=== PATIENT | male | born 1975 | race African-American/Black ===

== ENCOUNTER 2016-05-09 09:53 | Inpatient (IN) | payer OTHER ==
[2016-05-09 10:15] VITALS: BMI 24.4
--- NOTE | 2016-05-09 11:31 | HP ---
COWS - Scale Resting Pulse: 0= [place] 80 or Below Sweatin=Flushed/Facial Moisture Restless Observation: 0= Sits Still Pupil Size: 0= Normal to Room Light Bone or Joint Aches: 2= Severe Diffuse Aches Runny Nose/ Eye Tearin= Nasal Congestion GI Upset > 30mins: 1= Stomach Cramp Tremor Observation: 2= Slight Tremor Visible Yawning Observation: 2= >3x During Session Anxiety or Irritability: 2=Irritable/Anxious Goose Flesh Skin: 0=Smooth Skin COWS Score: 12 CIWA Score - CIWA Score Nausea/Vomitin-No Nausea/No Vomiting Muscle Tremors: 4-Moderate,w/Arms Extend Anxiety: 3 Agitation: 4-Moderately Restless Paroxysmal Sweats: 3 Orientation: 0-Oriented Tacttile Disturbances: 0-None Auditory Disturbances: 0-None Visual Disturbances: 0-None Headache: 3-Moderate CIWA-Ar Total Score: 17 Admission ROS S - HPI Chief Complaint: I need to detox from ana and alcohol and continue treatment. Allergies/Adverse Reactions: Allergies Allergy/AdvReac Type Severity Reaction Status Date / Time No Known Allergies Allergy Verified 05/09/16 10:23 History of Present Illness: pt is a 40yr old male with a history of alcohol, heroin and cocaine dependence seeking detox for treatment. Exam Limitations: No Limitations - Ebola screening Have you traveled outside of the country in the last 21 days: No Have you had contact with anyone from an Ebola affected area: No Have you been sick,other than usual withdrawal symptoms: No Do you have a fever: No - Review of Systems Constitutional: Chills, Diaphoresis, Loss of Appetite, Night Sweats, Changes in sleep, Unintentional Wgt. Loss EENT: reports: Nose Congestion Respiratory: reports: Cough Cardiac: reports: Lightheadedness GI: reports: Poor Appetite, Poor Fluid Intake, Indigestion : reports: No Symptoms Reported Musculoskeletal: reports: Back Pain Integumentary: reports: Flushing, Sweating Neuro: reports: Headache, Tingling, Tremors Endocrine: reports: Excessive Sweating, Flushing, Intolerance to Cold, Intolerance to Heat Hematology: reports: No Symptoms Reported Psychiatric: reports: Judgement Intact, Mood/Affect Appropiate, Orientated x3, Agitated, Anxious Other Systems: Reviewed and Negative Patient History - Patient Medical History Hx Anemia: No Hx Asthma: No Hx Chronic Obstructive Pulmonary Disease (COPD): No Hx Cancer: No Hx Cardiac Disorders: No Hx Congestive Heart Failure: No Hx Hypertension: Yes Hx Hypercholesterolemia: No Hx Pacemaker: No HX Cerebrovascular Accident: No Hx Seizures: No Hx Dementia: No Hx Diabetes: No Hx Gastrointestinal Disorders: No Hx Liver Disease: No Hx Genitourinary Disorders: No Hx Sexually Transmitted Disorders: Yes (herpes/treated) Hx Renal Disease (ESRD): No Hx Thyroid Disease: No Hx Human Immunodeficiency Virus (HIV): No (NEGATIVE HX) Hx Hepatitis C: No Hx Depression: Yes Hx Suicide Attempt: No Hx Bipolar Disorder: Yes (ON MEDS ) Hx Schizophrenia: No - Patient Surgical History Past Surgical History: Yes Hx Neurologic Surgery: No Hx Cataract Extraction: No Hx Cardiac Surgery: No Hx Lung Surgery: No Hx Breast Surgery: No Hx Breast Biopsy: No Hx Abdominal Surgery: Yes (L inguinal hernia 2004) Hx Appendectomy: No Hx Cholecystectomy: No Hx Genitourinary Surgery: No Hx Section: No Hx Orthopedic Surgery: No Other Surgical History: 2010 reconstructive facial sx L side Anesthesia Reaction: No - PPD History Previous Implant?: Yes Documented Results: Negative w/o proof Implanted On Prior [facility] Admission?: Yes PPD to be Administered?: Yes - Reproductive History Patient is a Female of Child Bearing Age (11 -55 yrs old): No - Smoking Cessation Smoking history: Current every day smoker Have you smoked in the past 12 months: Yes Aproximately how many cigarettes per day: 7 Hx Chewing Tobacco Use: No Initiated information on smoking cessation: Yes 'Breaking Loose' booklet given: 05/09/16 - Substance & Tx. History Hx Alcohol Use: No Hx Substance Use: No Substance Use Type: Alcohol, Cocaine, Heroin Hx Substance Use Treatment: Yes - Substances Abused Alcohol Route: Oral Frequency: Daily Amount used: Beer( 6pk 24 oz cans)/vodka(1/2 pint) Age of first use: 13 Date of Last Use: 05/09/16 Heroin Route: Inhalation Frequency: Daily Amount used: 3 bAGS Age of first use: 39 Date of Last Use: 05/09/16 Cocaine Route: Smoking Frequency: Daily Amount used: $20 Age of first use: 13 Date of Last Use: 05/08/16 Family Disease History - Family Disease History Family Disease History: Diabetes: Grandparent, Heart Disease: Grandparent, [place]: Grandparent, Other: Father (etoh/substance), Mother (etoh/substance), Brother ( substance/etoh), Sister (substance/etoh) Admission Physical Exam [facility] - Vital Signs Vital Signs: Vital Signs - 24 hr 05/09/16 10:13 Temperature 97.5 F L Pulse Rate 75 Respiratory 18 Rate Blood Pressure 143/81 - Physical General Appearance: Yes: Appropriately Dressed, Moderate Distress, Tremorous, Irritable, Sweating, Anxious HEENTM: Yes: Hearing grossly Normal, Normal Voice, Nasal Congestion, Rhinorrhea Respiratory: Yes: Lungs Clear, Normal Breath Sounds, No Respiratory Distress Neck: Yes: No masses,lesions,Nodules Breast: Yes: Within Normal Limits Cardiology: Yes: Regular Rhythm, Regular Rate, S1, S2 Abdominal: Yes: Normal Bowel Sounds, Non Tender, Soft Genitourinary: Yes: Within Normal Limits Back: Yes: Normal Inspection Musculoskeletal: Yes: full range of Motion, Gait Steady Extremities: Yes: Normal Capillary Refill, Normal Inspection, Non-Tender, Tremors Neurological: Yes: Fully Oriented, Alert, Normal Response Integumentary: Yes: Normal Color, Diaphoresis Lymphatic: Yes: Within Normal Limits - Diagnostic (1) Alcohol dependence with uncomplicated withdrawal Current Visit: Yes Status: Chronic (2) Bipolar disorder Current Visit: Yes Status: Chronic (3) Cocaine dependence Current Visit: Yes Status: Chronic Qualifiers: Substance use status: uncomplicated Qualified Code(s): F14.20 - Cocaine dependence, uncomplicated (4) Hypertension Current Visit: Yes Status: Chronic Qualifiers: Hypertension type: essential hypertension Qualified Code(s): I10 - Essential (primary) hypertension (5) Nicotine dependence Current Visit: Yes Status: Chronic Qualifiers: Nicotine product type: cigarettes Substance use status: uncomplicated Qualified Code(s): F17.210 - Nicotine dependence, cigarettes, uncomplicated (6) Opioid dependence with withdrawal Current Visit: Yes Status: Chronic Cleared for Admission [facility] - Detox or Rehab [facility] Level of Care: Medically Managed Detox Regimen/Protocol: Methadone/Librium [facility] Breath Alcohol Content Breath Alcohol Content: 0.018 Urine Drug Screen - Results Drug Screen Negative: No Urine Drug Screen Results: FRANKY-Cocaine, OPI-Opiates, BZO-Benzodiazepines
[2016-05-09] MEDS ORDERED: MAGNESIUM HYDROX 2400MG/30ML ORAL SUSPENSION 30 ML CUP PO PRN (11:42)
[2016-05-09] MEDS ORDERED: guaiFENesin/D-METHORPHAN HB 10 ML UNIT-DOSE CUPS PO PRN (11:42)
[2016-05-09] MEDS ORDERED: chlordiazePOXIDE HCL 25 MG CAPSULE PO PRN (11:42)
[2016-05-09] MEDS ORDERED: IBUPROFEN 400 MG TABLET (FP) PO PRN (11:42)
[2016-05-09] MEDS ORDERED: LOPERAMIDE HCL 2 MG CAPSULE PO PRN (11:42)
[2016-05-09] MEDS ORDERED: NICOTINE POLACRILEX 4 MG GUM BUC PRN (11:42)
[2016-05-09] MEDS ORDERED: MAGNESIUM CITRATE 300 ML BOTTLE PO PRN (11:42)
[2016-05-09] MEDS ORDERED: hydrOXYzine PAMOATE 50 MG CAPSULE (FP) PO PRN (11:42)
[2016-05-09] MEDS ORDERED: MAG HYDROX/AL HYDROX/SIMETH 30 ML UNIT-DOSE CUP PO PRN (11:42)
[2016-05-09] MEDS ORDERED: diphenhydrAMINE HCL 50 MG CAPSULE PO PRN (11:42)
[2016-05-09] MEDS ORDERED: P-EPHED 60MG/TRIPROLIDI 2.5MG TABLET PO PRN (11:42)
[2016-05-09] MEDS ORDERED: MENTHOL/PHENOL 1 EACH UD MM PRN (11:42)
[2016-05-09] MEDS ORDERED: ACETAMINOPHEN 325 MG TABLET (FP) PO PRN (11:42)
[2016-05-09] MEDS ORDERED: chlordiazePOXIDE HCL 25 MG CAPSULE PO ONE (11:47)
[2016-05-09] MEDS ORDERED: METHADONE HCL 10 MG TABLET (FOR DETOX USE ONLY) PO ONE ×2 (11:58→23:00)
[2016-05-09] MEDS: chlordiazePOXIDE HCL 25 MG CAPSULE PO SCH ×3 (12:38→22:24)
--- NOTE | 2016-05-09 15:19 | CONSULT ---
[facility] Psychiatric Consult - Data Date of interview: 05/09/16 Admission source: [facility] Identifying data: Readmission to [facility] for this 40 y/o AA male seeking detox treatment on for heroin,benzodiazepine (xanax),cocaine (crack) and alcohol dependence.Patient is single,a father of two,homeless,unemployed and supported on food stamps. Substance Abuse History: - Smoking Cessation. Smoking history: Current every day smoker. Have you smoked in the past 12 months: Yes. Aproximately how many cigarettes per day: 7. Hx Chewing Tobacco Use: No. Initiated information on smoking cessation: Yes. 'Breaking Loose' booklet given: 05/09/16. - Substance & Tx. History. Hx Alcohol Use: No. Hx Substance Use: No. Substance Use Type: Alcohol, Cocaine, Heroin. Hx Substance Use Treatment: Yes. - Substances Abused. Alcohol. Route: Oral. Frequency: Daily. Amount used: Beer( 6pk 24 oz cans)/vodka(1/2 pint). Age of first use: 13. Date of Last Use: . Heroin. Route: Inhalation. Frequency: Daily. Amount used: 3 bAGS. Age of first use: 39. Date of Last Use: 05/09/16. Cocaine. Route: Smoking. Frequency: Daily. Amount used: $20. Age of first use: 13. Date of Last Use: 05/08/16. Confirmed by patient. Medical History: Significant for a history of hypertension,past treatment for herpes genitalis,left inguinal herniorraphy (2004) and reconstructive facial surgery (plate in place in left cheek) in 2009. Psychiatric History: Onset of psychiatric illness :age 12.Admitted to [facility] for behavior dyscontrol and self mutilation.Diagnosed with Bipolar Disorder and started on [place] at the time.Subsequent admission in 2010 at [facility] for auditory hallucinations and suicidal ideation.Was switched to Seroquel.Mr Morales used to receive psychiatric outpatient services at [facility] (no show for past three months as per self-report) .Stopped taking (own choice) risperdal,sertraline and cogentin.Doses were : Risperdal 4 mg po HS, + Cogentin 0.5 mg po HS + Zoloft 25 mg po daily.Patient expresses the wish to get back on these medications in this hospital course. Physical/Sexual Abuse/Trauma History: Patient denies. Mental Status Exam - Mental Status Exam Alert and Oriented to: Time, Place, Person Cognitive Function: Good Patient Appearance: Well Groomed Mood: Withdrawn, Apprehensive, Hopeful Affect: Mood Congruent Patient Behavior: Appropriate, Cooperative Speech Pattern: Clear, Appropriate Voice Loudness: Normal Thought Process: Goal Oriented Thought Disorder: Not Present Hallucinations: Denies Suicidal Ideation: Denies Homicidal Ideation: Denies Insight/Judgement: Poor Sleep: Fair Appetite: Good Muscle strength/Tone: Normal Gait/Station: Normal Psychiatric Findings - Problem List ([place] 1, 2,3) (1) Alcohol dependence with uncomplicated withdrawal Current Visit: Yes Status: Acute (2) Opioid dependence with withdrawal Current Visit: Yes Status: Acute (3) Cocaine dependence Current Visit: Yes Status: Acute Qualifiers: Substance use status: uncomplicated Qualified Code(s): F14.20 - Cocaine dependence, uncomplicated (4) Nicotine dependence Current Visit: Yes Status: Acute Qualifiers: Nicotine product type: cigarettes Substance use status: uncomplicated Qualified Code(s): F17.210 - Nicotine dependence, cigarettes, uncomplicated (5) Bipolar disorder Current Visit: Yes Status: Chronic (6) Hypertension Current Visit: Yes Status: Chronic Qualifiers: Hypertension type: essential hypertension Qualified Code(s): I10 - Essential (primary) hypertension - Initial Treatment Plan Initial Treatment Plan: Psychoeducation.Detoxification in progress.Medications : risperdal 1 mg po bid + cogentin 0.5 mg po bid + zoloft 50 mg po daily.Side effects/benefits discussed with the patient.He agrees to follow this careplan.Observation.
[2016-05-09] MEDS ORDERED: LORATADINE 10 MG TABLET PO ONE (17:30)
[2016-05-09 17:53] LABS: URINE APPEARANCE CLEAR; URINE BILIRUBIN NEGATIVE (NEGATIVE); URINE BLOOD NEGATIVE (NEGATIVE); URINE COLOR YELLOW; URINE GLUCOSE (UA) NEGATIVE (NEGATIVE); URINE KETONE NEGATIVE (NEGATIVE); URINE LEUK ESTERASE NEGATIVE (NEGATIVE); URINE NITRITE NEGATIVE (NEGATIVE); URINE PROTEIN NEGATIVE (NEGATIVE); URINE UROBILINOGEN NEGATIVE E.U./dl (0.2-1.0)
[2016-05-09] MEDS: THIAMINE HCL 100 MG TABLET (FP) PO SCH (22:24)
[2016-05-09] MEDS: risperiDONE 1 MG TABLET (FP) PO SCH (22:24)
[2016-05-09] MEDS: BENZTROPINE MESYLATE 1 MG TABLET (FP) PO SCH (22:24)
[2016-05-10] MEDS: chlordiazePOXIDE HCL 25 MG CAPSULE PO SCH ×4 (05:48→22:39)
[2016-05-10] MEDS ORDERED: PATIENT'S OWN MEDICATION (NON-FORMULARY) (Amlodipine Besylate/Benazepril [Lotrel 5-40 Mg C PO SCH (10:00)
[2016-05-10] MEDS ORDERED: METHADONE HCL 10 MG TABLET (FOR DETOX USE ONLY) PO SCH (10:00)
[2016-05-10 10:31] LABS: MCHC 33.3 g/dl (32.0-35.9); MEAN CELL VOLUME 84.1 fl (80-96); PLATELET COUNT 197 K/MM3 (134-434); RDW 15.3 % (11.9-15.9); WHITE BLOOD COUNT 5.9 K/mm3 (4.0-10.0)
[2016-05-10] MEDS: SERTRALINE HCL 50 MG TABLET (FP) PO SCH ×2 (11:30→14:14)
[2016-05-10] MEDS: NICOTINE 21 MG/24 HOURS TOPICAL PATCH TD SCH (11:30)
[2016-05-10] MEDS: CHOLECALCIFEROL (VITAMIN D3) 1,000 UNIT TABLET (FP) PO SCH (11:30)
[2016-05-10] MEDS: BENZTROPINE MESYLATE 1 MG TABLET (FP) PO SCH ×2 (11:34→22:40)
[2016-05-10] MEDS: PRENATAL VITAMINS W/ FOLIC ACID TABLET (FP) PO SCH (11:34)
[2016-05-10] MEDS: LORATADINE 10 MG TABLET PO SCH (11:34)
[2016-05-10] MEDS: LISINOPRIL 20 MG TABLET (FP) PO SCH (11:35)
[2016-05-10] MEDS: risperiDONE 1 MG TABLET (FP) PO SCH ×2 (11:35→22:40)
[2016-05-10] MEDS: amLODIPine BESYLATE 5 MG TABLET (FP) PO SCH (11:35)
[2016-05-10 11:57] LABS: ALBUMIN 4.1 g/dl (3.4-5.0); ALK PHOS 65 U/L (45-117); ANION GAP 10 (8-16); BILIRUBIN,TOTAL 0.5 mg/dL (0.2-1.0); CALCIUM 8.9 mg/dL (8.5-10.1); CO2 26 mmol/L (21-32); CREATININE 1.2 mg/dL (0.7-1.3); GLUCOSE,RANDOM 54 mg/dL (74-106); SGOT/AST 30 U/L (15-37); SGPT/ALT 30 U/L (12-78); TOT PROT 7.3 g/dl (6.4-8.2)
[2016-05-10] MEDS ORDERED: INFLUENZA VACCINE 45 MCG/0.5 ML (MDV 16-17) IM ONE (12:00)
--- NOTE | 2016-05-10 12:43 | PN ---
[facility] CIWA - CIWA Score Nausea/Vomitin Muscle Tremors: 3 Anxiety: 3 Agitation: 2 Paroxysmal Sweats: 1-Minimal Palms Moist Orientation: 0-Oriented Tacttile Disturbances: 1-Very Mild Itch/Numbness Auditory Disturbances: 1-Very Mild Visual Disturbances: 1-Very Mild Sensitivity Headache: 2-Mild CIWA-Ar Total Score: 17 BHS COWS - Scale Resting Pulse: 0= [place] 80 or Below Sweatin= Chills/Flushing Restless Observation: 3= Extraneous Movement Pupil Size: 1= Pupils >than Normal Bone or Joint Aches: 2= Severe Diffuse Aches Runny Nose/ Eye Tearin= Runny Nose/Eyes GI Upset > 30mins: 3= Vomiting/Diarrhea Tremor Observation of Outstretched Hands: 2= Slight Tremor Visible Yawning Observation: 1= 1-2x During Session Anxiety or Irritability: 2=Irritable/Anxious Goose Flesh Skin: 0=Smooth Skin COWS Score: 17 S Progress Note (SOAP) Subjective: ALERT,IRRITABLE,ANXIOUS,TREMOR,PAIN IN THE BODY JOINT BACK Objective: 05/10/16 12:41 Vital Signs Temperature 97.1 F L 05/10/16 10:00 Pulse Rate 54 L 05/10/16 10:00 Respiratory Rate 18 05/10/16 10:00 Blood Pressure 122/80 05/10/16 10:00 O2 Sat by Pulse Oximetry (%) EKG NSR WITH SINUS ARRHYTHMIA Laboratory Last Values WBC 5.9 K/mm3 (4.0-10.0) 05/10/16 08:00 RBC 5.44 M/mm3 (4.00-5.60) 05/10/16 08:00 Hgb 15.2 GM/dL (11.7-16.9) 05/10/16 08:00 Hct 45.8 % (35.4-49) 05/10/16 08:00 MCV 84.1 fl (80-96) 05/10/16 08:00 MCHC 33.3 g/dl (32.0-35.9) 05/10/16 08:00 RDW 15.3 % (11.9-15.9) 05/10/16 08:00 Plt Count 197 K/MM3 (134-434) 05/10/16 08:00 MPV 10.0 fl (7.5-11.1) 05/10/16 08:00 Sodium 137 mmol/L (136-145) 05/10/16 08:00 Potassium 3.9 mmol/L (3.5-5.1) 05/10/16 08:00 Chloride 101 mmol/L (98-107) 05/10/16 08:00 Carbon Dioxide 26 mmol/L (21-32) 05/10/16 08:00 Anion Gap 10 (8-16) 05/10/16 08:00 BUN 13 mg/dL (7-18) 05/10/16 08:00 Creatinine 1.2 mg/dL (0.7-1.3) 05/10/16 08:00 Creat Clearance w eGFR > 60 (>60) 05/10/16 08:00 Random Glucose 54 mg/dL (74-106) L D 05/10/16 08:00 Calcium 8.9 mg/dL (8.5-10.1) 05/10/16 08:00 Total Bilirubin 0.5 mg/dL (0.2-1.0) D 05/10/16 08:00 AST 30 U/L (15-37) 05/10/16 08:00 ALT 30 U/L (12-78) 05/10/16 08:00 Alkaline Phosphatase 65 U/L (45-117) 05/10/16 08:00 Total Protein 7.3 g/dl (6.4-8.2) 05/10/16 08:00 Albumin 4.1 g/dl (3.4-5.0) 05/10/16 08:00 Urine Color Yellow 05/09/16 17:00 Urine Appearance Clear 05/09/16 17:00 Urine pH 5.0 (5.0-8.0) D 05/09/16 17:00 Ur Specific [place] 1.016 (1.001-1.035) 05/09/16 17:00 Urine Protein Negative (NEGATIVE) 05/09/16 17:00 Urine Glucose (UA) Negative (NEGATIVE) 05/09/16 17:00 Urine Ketones Negative (NEGATIVE) 05/09/16 17:00 Urine Blood Negative (NEGATIVE) 05/09/16 17:00 Urine Nitrite Negative (NEGATIVE) 05/09/16 17:00 Urine Bilirubin Negative (NEGATIVE) 05/09/16 17:00 Urine Urobilinogen Negative E.U./dl (0.2-1.0) 05/09/16 17:00 Ur Leukocyte Esterase Negative (NEGATIVE) 05/09/16 17:00 LABS PENDING Assessment: 05/10/16 12:43 WITHDRAWAL SYMPTOM Plan: CONTINUE DETOX
--- NOTE | 2016-05-10 16:29 | EKG ---
Test Reason : Blood Pressure : / mmHG Vent. Rate : 063 BPM Atrial Rate : 063 BPM P-R Int : 178 ms QRS Dur : 084 ms QT Int : 396 ms P-R-T Axes : 047 -01 009 degrees QTc Int : 405 ms NORMAL SINUS RHYTHM WITH SINUS ARRHYTHMIA NORMAL ECG NO PREVIOUS ECGS AVAILABLE Confirmed by JOHN BRIGHT, JOHANA ([id number]) on 05/10/2016 4:29:36 PM Referred By: Jalen Sandoval Confirmed By:JOHANA LOPEZ MD
[2016-05-10] MEDS: THIAMINE HCL 100 MG TABLET (FP) PO SCH (22:40)
[2016-05-11] MEDS: chlordiazePOXIDE HCL 25 MG CAPSULE PO SCH (06:19)
[2016-05-11] MEDS: SERTRALINE HCL 50 MG TABLET (FP) PO SCH (11:15)
[2016-05-11] MEDS: LISINOPRIL 20 MG TABLET (FP) PO SCH (11:15)
[2016-05-11] MEDS: amLODIPine BESYLATE 5 MG TABLET (FP) PO SCH (11:15)
[2016-05-11] MEDS: LORATADINE 10 MG TABLET PO SCH (11:15)
[2016-05-11] MEDS: chlordiazePOXIDE 5 MG CAPSULE PO SCH ×3 (11:15→22:07)
[2016-05-11] MEDS: PRENATAL VITAMINS W/ FOLIC ACID TABLET (FP) PO SCH (11:15)
[2016-05-11] MEDS: CHOLECALCIFEROL (VITAMIN D3) 1,000 UNIT TABLET (FP) PO SCH (11:15)
[2016-05-11] MEDS: risperiDONE 1 MG TABLET (FP) PO SCH ×2 (11:15→22:07)
[2016-05-11] MEDS: NICOTINE 21 MG/24 HOURS TOPICAL PATCH TD SCH (11:15)
[2016-05-11] MEDS: BENZTROPINE MESYLATE 1 MG TABLET (FP) PO SCH ×2 (11:15→22:07)
--- NOTE | 2016-05-11 12:49 | PN ---
S CIWA - CIWA Score Nausea/Vomitin Muscle Tremors: 3 Anxiety: 3 Agitation: 3 Paroxysmal Sweats: 1-Minimal Palms Moist Orientation: 0-Oriented Tacttile Disturbances: 1-Very Mild Itch/Numbness Auditory Disturbances: 1-Very Mild Visual Disturbances: 1-Very Mild Sensitivity Headache: 2-Mild CIWA-Ar Total Score: 18 BHS COWS - Scale Resting Pulse: 1= [place] 81-100 Sweatin= Chills/Flushing Restless Observation: 3= Extraneous Movement Pupil Size: 1= Pupils >than Normal Bone or Joint Aches: 2= Severe Diffuse Aches Runny Nose/ Eye Tearin= Runny Nose/Eyes GI Upset > 30mins: 2= Nausea/Diarrhea Tremor Observation of Outstretched Hands: 2= Slight Tremor Visible Yawning Observation: 1= 1-2x During Session Anxiety or Irritability: 2=Irritable/Anxious Goose Flesh Skin: 0=Smooth Skin COWS Score: 17 S Progress Note (SOAP) Subjective: ALERT,IRRITABLE,ANXIOUS,INTERRUPTED SLEEP,TREMOR,PAIN IN THE BODY Objective: 05/11/16 12:50 Vital Signs Temperature 98.2 F 05/11/16 10:00 Pulse Rate 85 05/11/16 10:00 Respiratory Rate 16 05/11/16 10:00 Blood Pressure 109/70 05/11/16 10:00 O2 Sat by Pulse Oximetry (%) Laboratory Last Values WBC 5.9 K/mm3 (4.0-10.0) 05/10/16 08:00 RBC 5.44 M/mm3 (4.00-5.60) 05/10/16 08:00 Hgb 15.2 GM/dL (11.7-16.9) 05/10/16 08:00 Hct 45.8 % (35.4-49) 05/10/16 08:00 MCV 84.1 fl (80-96) 05/10/16 08:00 MCHC 33.3 g/dl (32.0-35.9) 05/10/16 08:00 RDW 15.3 % (11.9-15.9) 05/10/16 08:00 Plt Count 197 K/MM3 (134-434) 05/10/16 08:00 MPV 10.0 fl (7.5-11.1) 05/10/16 08:00 Sodium 137 mmol/L (136-145) 05/10/16 08:00 Potassium 3.9 mmol/L (3.5-5.1) 05/10/16 08:00 Chloride 101 mmol/L (98-107) 05/10/16 08:00 Carbon Dioxide 26 mmol/L (21-32) 05/10/16 08:00 Anion Gap 10 (8-16) 05/10/16 08:00 BUN 13 mg/dL (7-18) 05/10/16 08:00 Creatinine 1.2 mg/dL (0.7-1.3) 05/10/16 08:00 Creat Clearance w eGFR > 60 (>60) 05/10/16 08:00 POC Glucometer 114 UNITS (()) 05/11/16 06:18 Random Glucose 54 mg/dL (74-106) L D 05/10/16 08:00 Calcium 8.9 mg/dL (8.5-10.1) 05/10/16 08:00 Total Bilirubin 0.5 mg/dL (0.2-1.0) D 05/10/16 08:00 AST 30 U/L (15-37) 05/10/16 08:00 ALT 30 U/L (12-78) 05/10/16 08:00 Alkaline Phosphatase 65 U/L (45-117) 05/10/16 08:00 Ammonia 26.9 umol/L (11-32) 05/11/16 07:40 Total Protein 7.3 g/dl (6.4-8.2) 05/10/16 08:00 Albumin 4.1 g/dl (3.4-5.0) 05/10/16 08:00 Urine Color Yellow 05/09/16 17:00 Urine Appearance Clear 05/09/16 17:00 Urine pH 5.0 (5.0-8.0) D 05/09/16 17:00 Ur Specific [place] 1.016 (1.001-1.035) 05/09/16 17:00 Urine Protein Negative (NEGATIVE) 05/09/16 17:00 Urine Glucose (UA) Negative (NEGATIVE) 05/09/16 17:00 Urine Ketones Negative (NEGATIVE) 05/09/16 17:00 Urine Blood Negative (NEGATIVE) 05/09/16 17:00 Urine Nitrite Negative (NEGATIVE) 05/09/16 17:00 Urine Bilirubin Negative (NEGATIVE) 05/09/16 17:00 Urine Urobilinogen Negative E.U./dl (0.2-1.0) 05/09/16 17:00 Ur Leukocyte Esterase Negative (NEGATIVE) 05/09/16 17:00 RPR Titer Nonreactive (NONREACTIVE) 05/10/16 08:00 Assessment: 05/11/16 12:51 WITHDRAWAL SYMPTOM Plan: CONTINUE DETOX
--- NOTE | 2016-05-11 12:52 | PN ---
BHS Progress Note Note: AMMONIA LEVEL IS 26.9
[2016-05-11] MEDS: METHADONE HCL 5 MG TABLET (FOR DETOX USE ONLY) PO SCH (13:31)
[2016-05-11] MEDS: THIAMINE HCL 100 MG TABLET (FP) PO SCH (22:07)
[2016-05-12] MEDS: chlordiazePOXIDE 5 MG CAPSULE PO SCH (06:32)
[2016-05-12] MEDS: PRENATAL VITAMINS W/ FOLIC ACID TABLET (FP) PO SCH (10:22)
[2016-05-12] MEDS: LISINOPRIL 20 MG TABLET (FP) PO SCH (10:23)
[2016-05-12] MEDS: METHADONE HCL 5 MG TABLET (FOR DETOX USE ONLY) PO SCH (10:23)
[2016-05-12] MEDS: LORATADINE 10 MG TABLET PO SCH (10:23)
[2016-05-12] MEDS: BENZTROPINE MESYLATE 1 MG TABLET (FP) PO SCH (10:23)
[2016-05-12] MEDS: SERTRALINE HCL 50 MG TABLET (FP) PO SCH (10:23)
[2016-05-12] MEDS: CHOLECALCIFEROL (VITAMIN D3) 1,000 UNIT TABLET (FP) PO SCH (10:24)
[2016-05-12] MEDS: NICOTINE 21 MG/24 HOURS TOPICAL PATCH TD SCH (10:24)
[2016-05-12] MEDS: amLODIPine BESYLATE 5 MG TABLET (FP) PO SCH (10:28)
--- NOTE | 2016-05-12 10:41 | PN ---
[facility] Progress Note (SOAP) Subjective: ALERT,IRRITABLE,ANXIOUS,INTERRUPTED SLEEP,PAIN IN THE BODY Objective: 05/12/16 10:40 Vital Signs Temperature 98.1 F 05/12/16 09:54 Pulse Rate 81 05/12/16 09:54 Respiratory Rate 18 05/12/16 09:54 Blood Pressure 116/68 05/12/16 09:54 O2 Sat by Pulse Oximetry (%) Assessment: 05/12/16 10:40 WITHDRAWAL SYMPTOM Plan: CONTINUE DETOX
[2016-05-12] MEDS ORDERED: chlordiazePOXIDE HCL 10 MG CAPSULE PO SCH (11:00)
[2016-05-12] MEDS: risperiDONE 1 MG TABLET (FP) PO SCH (11:05)
[2016-05-12] MEDS ORDERED: NAPROXEN 500 MG TABLET (FP) PO ONE (13:29)
--- NOTE | 2016-05-12 13:31 | PN ---
S Progress Note Note: PATIENT DID NOT WANT TO TAKE MOTRIN,STATED HE TAKE NAPROSYN AT HOME,NAPROSYN 500 MGS PO BID
[2016-05-12 14:00] VITALS: BP 113/67; PULSE 91; TEMP 97
--- NOTE | 2016-05-12 14:38 | DS ---
[facility] Detox Discharge Summary Admission Date: 05/09/16 Discharge Date: 05/12/16 - History Present History: Alcohol Dependence, Cocaine Dependence, Opioid Dependence Additional Comments: PATIENT DID NOT WANT TO COMPLETE TREATMENT,SIGNED RELEASE AMA,SEEN BY COUNSELOR Pertinent Past History: HYPERTENSION NICOTINE DEPENDENCE BIPOLAR DISORDER - Physical Exam Results Vital Signs: Vital Signs Temperature 97.0 F L 05/12/16 14:00 Pulse Rate 91 H 05/12/16 14:00 Respiratory Rate 18 05/12/16 14:00 Blood Pressure 113/67 05/12/16 14:00 O2 Sat by Pulse Oximetry (%) Pertinent Admission Physical Exam Findings: WITHDRAWAL SYMPTOM - Medication Discharge Medications: Ambulatory Orders Amlodipine Besylate/Benazepril [Lotrel 5-40 mg Capsule] 1 each PO DAILY Benztropine Mesylate [Cogentin -] 0.5 mg PO HS 11/01/15 Cholecalciferol (Vitamin D3) [Vitamin D3 -] 1,000 unit PO DAILY 11/01/15 Risperidone [Risperdal -] 2 mg PO HS 11/01/15 Sertraline HCl [Zoloft -] 25 mg PO DAILY 11/01/15 Benztropine Mesylate [Cogentin -] 0.5 mg PO BID #30 tablet 05/09/16 Risperidone [Risperdal] 1 mg PO BID #60 tablet 05/09/16 Sertraline HCl [Zoloft -] 50 mg PO DAILY #30 tablet 05/09/16 - AMA Did Patient Leave Against Medical Advice: Yes
[2016-05-12] MEDS ORDERED: NAPROXEN 500 MG TABLET (FP) PO SCH (22:00)
[2016-05-13] MEDS ORDERED: METHADONE HCL 10 MG TABLET (FOR DETOX USE ONLY) PO SCH (10:00)
[2016-05-14] MEDS ORDERED: METHADONE HCL 5 MG TABLET (FOR DETOX USE ONLY) PO SCH (06:00)
== END 2016-05-12 02:27 | disposition left against medical advice (07) | DRG 770 ==
LOC: YASAS 09:53 → Y6N 11:42
PROVIDERS: ADMIT Internal Medicine; ATTEND Internal Medicine
PROC: HZ2ZZZZ Detoxification Services for Substance Abuse Treatment (ICD-10-PCS; principal; 2016-05-09)
DX: F11.23 Opioid dependence with withdrawal (principal); F10.230 Alcohol dependence with withdrawal, uncomplicated; F14.20 Cocaine dependence, uncomplicated; F17.210 Nicotine dependence, cigarettes, uncomplicated; F31.9 Bipolar disorder, unspecified; I10 Essential (primary) hypertension; I49.9 Cardiac arrhythmia, unspecified; Z87.438 Personal history of other diseases of male genital organs; Z59.0 Homelessness
CPT/HCPCS: 36415; 80053; 81003; 82140; 85027; 86593; 93005; 93010; J2794

== ENCOUNTER 2018-03-17 13:57 | Inpatient (IN) | payer OTHER ==
[2018-03-17 15:00] VITALS: BMI 25.7
--- NOTE | 2018-03-17 18:21 | HP ---
CIWA Score Nausea/Vomitin-No Nausea/No Vomiting Muscle Tremors: None Anxiety: 0-No Anxiety, at Ease Agitation: 4-Moderately Restless Paroxysmal Sweats: No Perspiration Orientation: 0-Oriented Tacttile Disturbances: 2-Mild Itch/Numbness/Burn Auditory Disturbances: 2-Mild Harshness/Frighten Visual Disturbances: 3-Moderate Sensitivity Headache: 2-Mild CIWA-Ar Total Score: 13 - Admission Criteria [facility]ASAS Guidelines: Admission for Medically Managed Detox: Requires at least one of the followin. CIWA greater than 12 2. Seizures within the past 24 hours 3. Delirium tremens within the past 24 hours 4. Hallucinations within the past 24 hours 5. Acute intervention needed for co occurring medical disorder 6. Acute intervention needed for co occurring psychiatric disorder 7. Severe withdrawal that cannot be handled at a lower level of care (continued vomiting, continued diarrhea, abnormal vital signs) requiring intravenous medication and/or fluids 8. Patient presents the following: CIWA greater than 12 Admission Criteria Met: Admission criteria met Admission ROS [facility] Chief Complaint: SEEKING DETOX FOR C/O WITHDRAWAL SX'S FROM ALCOHOL Allergies/Adverse Reactions: Allergies Allergy/AdvReac Type Severity Reaction Status Date / Time corn Allergy Hives Verified 03/17/18 17:17 egg Allergy Hives Verified 03/17/18 17:17 No Known Drug Allergies Allergy Verified 03/17/18 17:17 shrimp Allergy Hives Verified 03/17/18 17:17 History of Present Illness: 42 Y.O. MALE HERE FOR ETOH DETOX. HE IS ALSO CRACK/COCAINE DEPENDENCE. HE IS KNOWN TO THIS PROGRAM. LAST HERE 04/2016. SELF REFERRED. WITH C/O WITHDRAWAL SX' S. CIWA 13. REPORTS LAST DETOX 6 WEEKS AGO AT [facility]. CLIENT REPORTS IMMEDIATELY RELAPSING AFTER DC. REPORTS LONGEST CLEAN 4 YEARS WHILE IN A RESIDENTIAL PROGRAM. REPORT MOST RECENT CLEAN TIME 6 MONTHS RELAPSING 12/2017. DENIES HX/O SEIZURE D/O SI/HI, AVH. DOES REPORTS BLACKOUTS. HE REPORTS HE IS CURRENTLY HOMELESS. PMHX- HTN, OA, PSYCH: DEPRESSION, PTSD, ANXIETY MEDS- RISPERDAl, remeron, buspar, cogentin, lotrel 09/13. last taken 03/16/2018 Exam Limitations: No Limitations - Ebola screening Have you traveled outside of the country in the last 21 days: No Have you had contact with anyone from an Ebola affected area: No Have you been sick,other than usual withdrawal symptoms: No Do you have a fever: No - Review of Systems Constitutional: Chills, Malaise, Night Sweats, Changes in sleep (ON REMERON) EENT: reports: Dental Problems (MISSING TEETH), Other (WATERY EYES) Respiratory: reports: No Symptoms reported Cardiac: reports: No Symptoms Reported GI: reports: Poor Fluid Intake : reports: No Symptoms Reported Musculoskeletal: reports: Back Pain (CHRONIC) Integumentary: reports: No Symptoms Reported Neuro: reports: No Symptoms reported Endocrine: reports: No Symptoms Reported Hematology: reports: No Symptoms Reported Psychiatric: reports: Agitated, Anxious, Depressed Other Systems: Reviewed and Negative Patient History - Patient Medical History Hx Anemia: No Hx Asthma: No Hx Chronic Obstructive Pulmonary Disease (COPD): No Hx Cancer: No Hx Cardiac Disorders: No Hx Congestive Heart Failure: No Hx Hypertension: Yes (LOTREL) Hx Hypercholesterolemia: No Hx Pacemaker: No HX Cerebrovascular Accident: No Hx Seizures: No Hx Dementia: No Hx Diabetes: No Hx Gastrointestinal Disorders: No Hx Liver Disease: No Hx Genitourinary Disorders: No Hx Sexually Transmitted Disorders: Yes (herpes/treated) Hx Renal Disease (ESRD): No Hx Thyroid Disease: No Hx Human Immunodeficiency Virus (HIV): No Hx Hepatitis C: No Hx Depression: Yes Hx Suicide Attempt: No Hx Bipolar Disorder: Yes (ON MEDS ) Hx Schizophrenia: No Other Medical History: OA, - Patient Surgical History Past Surgical History: Yes Hx Neurologic Surgery: No Hx Cataract Extraction: No Hx Cardiac Surgery: No Hx Lung Surgery: No Hx Breast Surgery: No Hx Breast Biopsy: No Hx Abdominal Surgery: Yes (L inguinal hernia 2004) Hx Appendectomy: No Hx Cholecystectomy: No Hx Genitourinary Surgery: No Hx Section: No Hx Orthopedic Surgery: No Other Surgical History: 2009 reconstructive facial sx L side Anesthesia Reaction: No - PPD History Previous Implant?: Yes Documented Results: Negative w/proof Implanted On Prior [facility] Admission?: Yes Date: 02/15/15 Results: NEGATIVE PPD to be Administered?: Yes - Smoking Cessation Smoking history: Current every day smoker Have you smoked in the past 12 months: Yes Aproximately how many cigarettes per day: 7 Cigars Per Day: 0 Hx Chewing Tobacco Use: No Initiated information on smoking cessation: Yes 'Breaking Loose' booklet given: 03/17/18 - Substance & Tx. History Hx Alcohol Use: Yes Hx Substance Use: Yes Substance Use Type: Alcohol, Cocaine Hx Substance Use Treatment: Yes ([facility]) - Substances Abused Alcohol Route: Oral Frequency: Daily Amount used: LIQUOR- 3 PINTS, BEER- 1 SIX PACK Age of first use: 13 Date of Last Use: 03/17/18 Cocaine Route: Smoking Frequency: Daily Amount used: 4 BAGS Age of first use: 13 Date of Last Use: 03/16/18 Family Disease History - Family Disease History Family Disease History: Diabetes: Grandparent, Heart Disease: Grandparent, CA: Grandparent, Other: Father (etoh/substance), Mother (etoh/substance), Brother ( substance/etoh), Sister (substance/etoh) Admission Physical Exam S - Vital Signs Vital Signs: Vital Signs - 24 hr 03/17/18 14:58 Temperature 98.2 F Pulse Rate 101 H Respiratory 18 Rate Blood Pressure 133/80 - Physical General Appearance: Yes: Appropriately Dressed, Mild Distress, Irritable HEENTM: Yes: EOMI, Normocephalic, Normal Voice, HORTENSIA, Pharynx Normal Respiratory: Yes: Chest Non-Tender, Lungs Clear, Normal Breath Sounds, No Respiratory Distress, No Accessory Muscle Use Neck: Yes: No masses,lesions,Nodules, Supple, Trachea in good position Breast: Yes: Breast Exam Deferred Cardiology: Yes: Regular Rhythm, Regular Rate, S1, S2 Abdominal: Yes: Non Tender, Increased Bowel Sounds, Protuberent Genitourinary: Yes: Within Normal Limits (NO C/O) Back: Yes: Normal Inspection Musculoskeletal: Yes: full range of Motion, Gait Steady Extremities: Yes: Normal Capillary Refill, Normal Range of Motion, Non-Tender Neurological: Yes: Fully Oriented, Alert, Motor Strength 5/5, Depressed Affect Integumentary: Yes: Dry, Warm Lymphatic: Yes: Within Normal Limits - Diagnostic (1) Osteoarthritis Current Visit: Yes Status: Chronic Qualifiers: Osteoarthritis location: unspecified site Osteoarthritis type: unspecified Qualified Code(s): M19.90 - Unspecified osteoarthritis, unspecified site (2) At risk for dehydration due to poor fluid intake Current Visit: Yes Status: Acute (3) Homelessness Current Visit: Yes Status: Chronic (4) Depressed affect Current Visit: Yes Status: Acute (5) Insomnia Current Visit: Yes Status: Suspected Qualifiers: Insomnia type: alcohol-induced Qualified Code(s): F10.982 - Alcohol use, unspecified with alcohol-induced sleep disorder (6) Depression Current Visit: Yes Status: Suspected (7) Anxiety Current Visit: Yes Status: Suspected (8) Alcohol dependence with uncomplicated withdrawal Current Visit: Yes Status: Acute (9) Cocaine dependence Current Visit: Yes Status: Chronic Qualifiers: Substance use status: uncomplicated Qualified Code(s): F14.20 - Cocaine dependence, uncomplicated (10) Nicotine dependence Current Visit: Yes Status: Chronic Qualifiers: Nicotine product type: cigarettes Substance use status: uncomplicated Qualified Code(s): F17.210 - Nicotine dependence, cigarettes, uncomplicated (11) Hypertension Current Visit: Yes Status: Chronic Qualifiers: Hypertension type: essential hypertension Qualified Code(s): I10 - Essential (primary) hypertension Cleared for Admission [facility] - Detox or Rehab [facility] Level of Care: Medically Managed Detox Regimen/Protocol: Librium Claeared for Rehab Admission: No S Breath Alcohol Content Breath Alcohol Content: 0.037 Urine Drug Screen - Results Drug Screen Negative: No Urine Drug Screen Results: FRANKY-Cocaine
[2018-03-17] MEDS ORDERED: ACETAMINOPHEN 325 MG TABLET (FP) PO PRN (18:35)
[2018-03-17] MEDS ORDERED: hydrOXYzine PAMOATE 50 MG CAPSULE (FP) PO PRN (18:35)
[2018-03-17] MEDS ORDERED: guaiFENesin/D-METHORPHAN HB 10 ML UNIT-DOSE CUPS PO PRN (18:35)
[2018-03-17] MEDS ORDERED: MAGNESIUM HYDROX 2400MG/30ML ORAL SUSPENSION 30 ML CUP PO PRN (18:35)
[2018-03-17] MEDS ORDERED: LOPERAMIDE HCL 2 MG CAPSULE PO PRN (18:35)
[2018-03-17] MEDS ORDERED: IBUPROFEN 400 MG TABLET (FP) PO PRN (18:35)
[2018-03-17] MEDS ORDERED: chlordiazePOXIDE HCL 25 MG CAPSULE PO PRN (18:35)
[2018-03-17] MEDS ORDERED: NICOTINE POLACRILEX 2 MG GUM BC PRN (18:35)
[2018-03-17] MEDS ORDERED: MENTHOL/PHENOL 1 EACH UD MM PRN (18:35)
[2018-03-17] MEDS ORDERED: MAGNESIUM CITRATE 300 ML BOTTLE PO PRN (18:35)
[2018-03-17] MEDS ORDERED: P-EPHED 60MG/TRIPROLIDI 2.5MG TABLET PO PRN (18:35)
[2018-03-17] MEDS: MAG HYDROX/AL HYDROX/SIMETH 30 ML UNIT-DOSE CUP PO PRN (21:22)
[2018-03-17] MEDS: THIAMINE HCL 100 MG TABLET (FP) PO SCH (21:34)
[2018-03-17] MEDS ORDERED: MELATONIN 5 MG TABLETS PO PRN (22:00)
[2018-03-17] MEDS: chlordiazePOXIDE HCL 25 MG CAPSULE PO SCH (22:18)
[2018-03-18 02:08] LABS: URINE APPEARANCE CLEAR; URINE BILIRUBIN NEGATIVE (<2.0 mg/dL); URINE COLOR LTYELLOW; URINE GLUCOSE (UA) NEGATIVE (NEGATIVE); URINE KETONE NEGATIVE (NEGATIVE); URINE LEUK ESTERASE NEGATIVE (NEGATIVE); URINE NITRITE NEGATIVE (NEGATIVE); URINE PROTEIN NEGATIVE (NEGATIVE); URINE UROBILINOGEN NEGATIVE mg/dL (0.2-1.0)
[2018-03-18] MEDS: chlordiazePOXIDE HCL 25 MG CAPSULE PO SCH ×4 (05:16→22:05)
[2018-03-18] MEDS: PRENATAL VITAMINS W/ FOLIC ACID TABLET (FP) PO SCH (10:15)
[2018-03-18] MEDS: amLODIPine BESYLATE 5 MG TABLET (FP) PO SCH (10:15)
[2018-03-18] MEDS: NICOTINE 14 MG/24 HOURS TOPICAL PATCH TD SCH (10:15)
[2018-03-18 10:19] LABS: HEMATOCRIT 45.2 % (35.4-49); HEMOGLOBIN 14.6 GM/dL (11.7-16.9); MCH 27.6 pg (25.7-33.7); MCHC 32.4 g/dl (32.0-35.9); MEAN CELL VOLUME 85.3 fl (80-96); MEAN PLT VOLUME 9.6 fl (7.5-11.1); PLATELET COUNT 167 K/MM3 (134-434); RBC 5.29 M/mm3 (4.00-5.60); RDW 14.6 % (11.9-15.9)
--- NOTE | 2018-03-18 10:38 | PN ---
S CIWA - CIWA Score Nausea/Vomitin-Mild Nausea/No Vomiting Muscle Tremors: 3 Anxiety: 3 Agitation: 3 Paroxysmal Sweats: 1-Minimal Palms Moist Orientation: 1-Uncertain about Date Tacttile Disturbances: 1-Very Mild Itch/Numbness Auditory Disturbances: 0-None Visual Disturbances: 0-None Headache: 1-Very Mild CIWA-Ar Total Score: 14 B[facility] Progress Note (SOAP) Subjective: diarrhea gassy tremor sweat anxiety trouble sleep at night Objective: 03/18/18 10:35 Vital Signs Temperature 97.4 F L 03/18/18 09:27 Pulse Rate 66 03/18/18 09:27 Respiratory Rate 16 03/18/18 09:27 Blood Pressure 123/76 03/18/18 09:27 O2 Sat by Pulse Oximetry (%) Laboratory Last Values Urine Color Ltyellow 03/17/18 22:46 Urine Appearance Clear 03/17/18 22:46 Urine pH 6.0 (5.0-8.0) 03/17/18 22:46 Ur Specific [place] 1.015 (1.010-1.035) 03/17/18 22:46 Urine Protein Negative (NEGATIVE) 03/17/18 22:46 Urine Glucose (UA) Negative (NEGATIVE) 03/17/18 22:46 Urine Ketones Negative (NEGATIVE) 03/17/18 22:46 Urine Blood Negative (NEGATIVE) 03/17/18 22:46 Urine Nitrite Negative (NEGATIVE) 03/17/18 22:46 Urine Bilirubin Negative (<2.0 mg/dL) 03/17/18 22:46 Urine Urobilinogen Negative mg/dL (0.2-1.0) 03/17/18 22:46 Ur Leukocyte Esterase Negative (NEGATIVE) 03/17/18 22:46 lab noted 03/18/18 10:39 review home medications with patient that none adherence with ART encourage the patient to bring in ART medications and discussed benefits of adherence Assessment: 03/18/18 10:35 withdrawal sx 03/18/18 10:52 diabetes gerd hiv Plan: continue detox discontinue motrin begin zantac begin metformin
[2018-03-18 10:47] LABS: ALBUMIN 3.4 g/dl (3.4-5.0); ALK PHOS 50 U/L (45-117); ANION GAP 10 MMOL/L (8-16); BILIRUBIN,TOTAL 0.6 mg/dL (0.2-1); BLOOD UREA NITROGEN 16 mg/dL (7-18); CALCIUM 8.3 mg/dL (8.5-10.1); CHLORIDE 104 mmol/L (98-107); CO2 26 mmol/L (21-32); CREATININE 1.1 mg/dL (0.55-1.3); GLUCOSE,RANDOM 84 mg/dL (74-106); POTASSIUM 4.3 mmol/L (3.5-5.1); SGOT/AST 19 U/L (15-37); SGPT/ALT 23 U/L (13-61); SODIUM 140 mmol/L (136-145); TOT PROT 6.3 g/dl (6.4-8.2)
[2018-03-18] MEDS: RANITIDINE HCL 150 MG TABLET (FP) PO SCH ×2 (11:51→22:05)
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
[2018-03-18] MEDS ORDERED: MIRTAZAPINE 15 MG TABLET (FP) PO SCH (22:00)
[2018-03-18] MEDS ORDERED: RISPERIDONE PO SCH (22:00)
[2018-03-18] MEDS ORDERED: BENZTROPINE MESYLATE PO SCH (22:00)
[2018-03-18] MEDS ORDERED: risperiDONE 2 MG TABLET PO SCH (22:00)
[2018-03-18] MEDS ORDERED: BENZTROPINE MESYLATE 1 MG TABLET (FP) PO SCH (22:00)
[2018-03-18] MEDS: busPIRone HCL 5 MG TABLET PO SCH (22:04)
[2018-03-18] MEDS: THIAMINE HCL 100 MG TABLET (FP) PO SCH (22:05)
[2018-03-18] MEDS: MAG HYDROX/AL HYDROX/SIMETH 30 ML UNIT-DOSE CUP PO PRN (22:36)
[2018-03-19] MEDS: chlordiazePOXIDE HCL 25 MG CAPSULE PO SCH ×3 (05:13→17:03)
[2018-03-19] MEDS ORDERED: PATIENT'S OWN MEDICATION (NON-FORMULARY) (Metformin Hcl [Metformin Hcl Er] 500 MG) PO SCH (07:00)
--- NOTE | 2018-03-19 09:51 | EKG ---
Test Reason : Blood Pressure : / mmHG Vent. Rate : 080 BPM Atrial Rate : 080 BPM P-R Int : 168 ms QRS Dur : 084 ms QT Int : 346 ms P-R-T Axes : 047 -05 005 degrees QTc Int : 399 ms NORMAL SINUS RHYTHM NORMAL ECG WHEN COMPARED WITH ECG OF 09-MAY-2016 13:05, NO SIGNIFICANT CHANGE WAS FOUND Confirmed by DELMA CASTRO MD ([id number]) on 03/19/2018 9:51:30 AM Referred By: Confirmed By:DELMA CASTRO MD
[2018-03-19] MEDS ORDERED: PANTOPRAZOLE 40 MG TABLET (FP) PO SCH (10:00)
[2018-03-19] MEDS: PRENATAL VITAMINS W/ FOLIC ACID TABLET (FP) PO SCH (10:21)
[2018-03-19] MEDS: amLODIPine BESYLATE 5 MG TABLET (FP) PO SCH (10:22)
[2018-03-19] MEDS: busPIRone HCL 5 MG TABLET PO SCH (10:22)
[2018-03-19] MEDS: NICOTINE 14 MG/24 HOURS TOPICAL PATCH TD SCH (10:22)
--- NOTE | 2018-03-19 11:21 | PN ---
S CIWA - CIWA Score Nausea/Vomitin Muscle Tremors: 1-None Visible, but [place] Anxiety: 2 Agitation: 2 Paroxysmal Sweats: 2 Orientation: 0-Oriented Tacttile Disturbances: 0-None Auditory Disturbances: 0-None Visual Disturbances: 0-None Headache: 0-None Present CIWA-Ar Total Score: 9 BHS Progress Note (SOAP) Subjective: PATIENT C/O ANXIETY, RESTLESSNESS, SWEATING AND HEARTBURN/NAUSEA Objective: 03/19/18 11:20 Laboratory Tests 03/17/18 03/18/18 03/18/18 22:46 07:50 07:50 WBC 4.0 RBC 5.29 Hgb 14.6 Hct 45.2 MCV 85.3 MCH 27.6 MCHC 32.4 RDW 14.6 Plt Count 167 MPV 9.6 Sodium 140 Potassium 4.3 Chloride 104 Carbon Dioxide 26 Anion Gap 10 BUN 16 Creatinine 1.1 Creat Clearance w eGFR > 60 POC Glucometer Random Glucose 84 Calcium 8.3 L Total Bilirubin 0.6 AST 19 ALT 23 Alkaline Phosphatase 50 Total Protein 6.3 L Albumin 3.4 Urine Color Ltyellow Urine Appearance Clear Urine pH 6.0 Ur Specific [place] 1.015 Urine Protein Negative Urine Glucose (UA) Negative Urine Ketones Negative Urine Blood Negative Urine Nitrite Negative Urine Bilirubin Negative Urine Urobilinogen Negative Ur Leukocyte Esterase Negative RPR Titer 03/18/18 03/19/18 07:50 05:12 WBC RBC Hgb Hct MCV MCH MCHC RDW Plt Count MPV Sodium Potassium Chloride Carbon Dioxide Anion Gap BUN Creatinine Creat Clearance w eGFR POC Glucometer 84 Random Glucose Calcium Total Bilirubin AST ALT Alkaline Phosphatase Total Protein Albumin Urine Color Urine Appearance Urine pH Ur Specific [place] Urine Protein Urine Glucose (UA) Urine Ketones Urine Blood Urine Nitrite Urine Bilirubin Urine Urobilinogen Ur Leukocyte Esterase RPR Titer Nonreactive Vital Signs Temperature 97.0 F L 03/19/18 09:57 Pulse Rate 79 03/19/18 09:57 Respiratory Rate 18 03/19/18 09:57 Blood Pressure 100/56 L 03/19/18 09:57 O2 Sat by Pulse Oximetry (%) PE: ALERT AND ORIENTED X 3 SKIN WARM AND DRY CAR S1S2 RESP CTA BL GI SOFT, BS+, ND,NT EXT FULL ROM Assessment: 03/19/18 11:20 A/P WITHDRAWAL SX GERD Plan: D/C ZANTAC START PROTONIX 40MG DAILY ENCOURAGE FLUIDS CONTINUE DETOX
[2018-03-19] MEDS: MAG HYDROX/AL HYDROX/SIMETH 30 ML UNIT-DOSE CUP PO PRN (15:03)
[2018-03-19 17:52] VITALS: BP 131/83; PULSE 79; TEMP 97
[2018-03-19] MEDS ORDERED: chlordiazePOXIDE 5 MG CAPSULE PO SCH (23:00)
[2018-03-20] MEDS ORDERED: chlordiazePOXIDE HCL 10 MG CAPSULE PO SCH (23:00)
== END 2018-03-19 18:03 | disposition left against medical advice (07) | DRG 770 ==
LOC: YASAS 13:57 → Y3N 18:41
PROVIDERS: ADMIT Neuromusculoskeletal Medicine & OMM; ATTEND Neuromusculoskeletal Medicine & OMM
PROC: HZ2ZZZZ Detoxification Services for Substance Abuse Treatment (ICD-10-PCS; principal; 2018-03-17)
DX: F10.230 Alcohol dependence with withdrawal, uncomplicated (principal); F14.20 Cocaine dependence, uncomplicated; F17.210 Nicotine dependence, cigarettes, uncomplicated; F19.24 Other psychoactive substance dependence with psychoactive substance-induced mood disorder; F19.282 Other psychoactive substance dependence with psychoactive substance-induced sleep disorder; F41.9 Anxiety disorder, unspecified; F31.9 Bipolar disorder, unspecified; Z21 Asymptomatic human immunodeficiency virus [HIV] infection status; I10 Essential (primary) hypertension; E11.9 Type 2 diabetes mellitus without complications; Z79.84 Long term (current) use of oral hypoglycemic drugs; K21.9 Gastro-esophageal reflux disease without esophagitis; M19.90 Unspecified osteoarthritis, unspecified site; Z86.19 Personal history of other infectious and parasitic diseases; Z91.89 Other specified personal risk factors, not elsewhere classified; Z59.0 Homelessness
CPT/HCPCS: 36415; 80053; 81003; 82962; 85027; 86593; 93005; 93010